=== PATIENT | male | born 1975 | race Caucasian/White ===

== ENCOUNTER 2024-10-08 11:15 | Inpatient (IN) | payer OTHER ==
[~2024-10-08 11:15] MED LIST: Iopamidol 370 76% 100 ML VIAL ONE
[2024-10-08 11:56] LABS: #Basophils 0.04 10x3/uL (0.0-0.2); #Eosinophils 0.05 10x3/uL (0.0-0.7); #Monocytes 0.47 10x3/uL (0.11-0.59); #Neutrophils 3.29 10x3/uL (1.40-6.50); %Basophils 0.8 % (0.0-1.0); %Eosinophils 1.0 % (0.0-10.0); %Lymphocytes 22.6 % (21.0-51.0); %Monocytes 9.4 % (0.0-10.0); %Neutrophils 66.0 % (42.0-75.0); Hematocrit 37.3 % (42.0-52.0); Hemoglobin 12.9 g/dL (14.0-18.0); Mean Corpuscular Hemoglobin 28.7 pg (27.0-31.0); Mean Corpuscular Volume 83.1 fL (78.0-98.0); Platelet Count 60 10x3/uL (130-400); Red Blood Cell (RBC) Count 4.49 mill/uL (4.70-6.10); White Blood Cell (WBC) Count 4.99 10x3/uL (4.8-10.8)
[2024-10-08 12:04] LABS: INR-International Normal Ratio 1.1; Prothrombin Time 14.0 sec (12.0-14.7)
[2024-10-08 12:05] LABS: PTT 81.8 sec (22.9-36.1)
[2024-10-08 12:14] LABS: ALT (SGPT) 14 U/L (Less than 45); AST (SGOT) 25 U/L (11-34); Albumin 4.2 g/dL (3.1-4.5); Alkaline Phosphatase 87 U/L (40-110); Anion Gap 15 mmol/L (10-20); BUN (Urea Nitrogen) 15 mg/dL (8.9-20.6); Bilirubin, Total 0.9 mg/dL (0.3-1.2); Calc. Creatinine Clearance 0 mL/min (70-130); Calcium 9.5 mg/dL (7.8-10.44); Carbon Dioxide 24 mmol/L (22-29); Chloride 107 mmol/L (98-107); Globulin 3.8 g/dL (2.4-3.5); Glucose 100 mg/dL (70-105); Potassium 3.8 mmol/L (3.5-5.1); Sodium 142 mmol/L (136-145)
[2024-10-08 12:28] LABS: Platelet Adequacy Comment Significant Decrease; Polychromasia SLIGHT = 2-3 cells HPF (0-2)
[2024-10-08] MEDS ORDERED: Melatonin 3 MG TAB PO PRN (15:19)
[2024-10-08] MEDS ORDERED: Calcium Carbonate 500 MG ChewTAB PO PRN (15:19)
[2024-10-08] MEDS ORDERED: Acetaminophen 325 MG TAB PO PRN (15:19)
[2024-10-08] MEDS ORDERED: Senokot S 8.6-50 MG TAB PO PRN (15:19)
[2024-10-08] MEDS ORDERED: Ondansetron PF 4 MG/2 ML Vial IVP PRN (15:19)
[2024-10-08] MEDS ORDERED: hydrALAZINE 20 MG/ML VIAL SLOW IVP PRN (15:19)
[2024-10-08] MEDS ORDERED: Electrolyte Replacement Protocol 1 EACH FS SCH (15:30)
[2024-10-08 15:46] VITALS: BMI 23.4
[2024-10-09 04:14] LABS: #Basophils 0.03 10x3/uL (0.0-0.2); #Eosinophils 0.11 10x3/uL (0.0-0.7); #Monocytes 0.44 10x3/uL (0.11-0.59); #Neutrophils 2.23 10x3/uL (1.40-6.50); %Basophils 0.7 % (0.0-1.0); %Eosinophils 2.7 % (0.0-10.0); %Lymphocytes 29.8 % (21.0-51.0); %Monocytes 10.9 % (0.0-10.0); %Neutrophils 55.4 % (42.0-75.0); Hematocrit 33.6 % (42.0-52.0); Hemoglobin 11.3 g/dL (14.0-18.0); Mean Corpuscular Hemoglobin 28.7 pg (27.0-31.0); Mean Corpuscular Volume 85.3 fL (78.0-98.0); Platelet Count 53 10x3/uL (130-400); Red Blood Cell (RBC) Count 3.94 mill/uL (4.70-6.10); White Blood Cell (WBC) Count 4.03 10x3/uL (4.8-10.8)
[2024-10-09 04:27] LABS: Anion Gap 13 mmol/L (10-20); BUN (Urea Nitrogen) 19 mg/dL (8.9-20.6); Calc. Creatinine Clearance 70 mL/min (70-130); Calcium 9.1 mg/dL (7.8-10.44); Carbon Dioxide 23 mmol/L (22-29); Cardiac Risk 7.5 (Less than 4.5); Chloride 108 mmol/L (98-107); Cholesterol 203 mg/dl (< 200 Desired); Glucose 91 mg/dL (70-105); HDL Cholesterol 27 mg/dL (>60 Neg Risk); LDL Cholesterol, Calculated 138 mg/dL; Potassium 3.9 mmol/L (3.5-5.1); Sodium 140 mmol/L (136-145); Triglycerides 189 mg/dL (Less than 150)
[2024-10-09 19:24] LABS: INR-International Normal Ratio 1.2; Prothrombin Time 15.0 sec (12.0-14.7)
[2024-10-09 19:25] LABS: PTT 74.2 sec (22.9-36.1)
[2024-10-09 19:26] LABS: D-Dimer Test 0.66 mcg/mL (0.27-0.43)
[2024-10-12 12:11] LABS: EliA APS New Method **** NEW METHOD ****
[2024-10-12] MEDS ORDERED: Lidocaine 1% PF 5 ML VIAL ONE (12:15)
[2024-10-12] MEDS ORDERED: PROPOFOL 40 ML ONE (12:15)
[2024-10-12 16:09] VITALS: BP 113/79; TEMP 98.4
== END 2024-10-12 16:51 | disposition home or self-care (01) | DRG 65 ==
LOC: ERS 11:15 → PCU 13:55 → OBSVTOIN 10-09 10:27
PROVIDERS: ADMIT Internal Medicine; ATTEND Internal Medicine
PROC: B245ZZ4 Ultrasonography of Left Heart, Transesophageal (ICD-10-PCS; principal; 2024-10-12)
DX: I63.531 Cerebral infarction due to unspecified occlusion or stenosis of right posterior cerebral artery (principal); D68.9 Coagulation defect, unspecified; I63.511 Cerebral infarction due to unspecified occlusion or stenosis of right middle cerebral artery; R29.700 NIHSS score 0; F41.9 Anxiety disorder, unspecified; D64.9 Anemia, unspecified; D69.6 Thrombocytopenia, unspecified; I08.1 Rheumatic disorders of both mitral and tricuspid valves; G54.0 Brachial plexus disorders; E78.5 Hyperlipidemia, unspecified; Z98.890 Other specified postprocedural states; Z71.3 Dietary counseling and surveillance; Z79.01 Long term (current) use of anticoagulants
CPT/HCPCS: 36415; 36416; 70450; 70496; 70498; 70551; 71045; 80048; 80053; 80061; 83090; 84443; 85025; 85300; 85303; 85306; 85307; 85598; 85610; 85730; 86147; 93005; 93306; 93312; 93880; 93970; 94760; G0378; J2704; Q9967